=== PATIENT | male | born 1975 | race Caucasian/White ===

== ENCOUNTER 2016-12-29 13:02 | Inpatient (IN) | payer MEDICAID ==
[~2016-12-29] VITALS: Ht 175.3 cm; Wt 97.3 kg
[~2016-12-29 13:02] MED LIST: NOCURR
[2016-12-29 14:59] VITALS: BP 125/76
[2016-12-29] MEDS ORDERED: ACETAMINOPHEN 325 MG TABLET PO PRN (15:15)
[2016-12-29] MEDS ORDERED: PROMETHAZINE HCL 25 MG TABLET PO PRN (15:15)
[2016-12-29] MEDS ORDERED: MAG HYDROX/AL HYDROX/SIMETH ES 30 ML SUSPENSION UDCUP PO PRN (15:15)
[2016-12-29] MEDS ORDERED: LORazepam 2 MG TABLET PO PRN (15:15)
[2016-12-29] MEDS ORDERED: LOPERAMIDE HCL 2 MG CAPSULE PO PRN (15:15)
[2016-12-29] MEDS ORDERED: HydrOXYzine PAMOATE 50 MG CAPSULE PO PRN (15:15)
[2016-12-29] MEDS ORDERED: MAGNESIUM HYDROXIDE SUSPENSION 30 ML UDCUP PO PRN (15:15)
[2016-12-29] MEDS ORDERED: TUBERCULIN, PURIFIED PROTEIN DERIVATIVE 5 TU/0.1 ML SYG ID ONE (15:15)
[2016-12-29] MEDS ORDERED: OLANZapine 5 MG RAPDIS TABLET PO PRN (15:15)
[2016-12-29] MEDS ORDERED: GuaiFENesin/D-METHORPHAN [SUGAR-FREE] 200-20MG/10 ML SYRUP UDCUP PO PRN (15:15)
[2016-12-29] MEDS ORDERED: ZOLPIDEM TARTRATE 10 MG TABLET PO PRN (15:15)
[2016-12-29 16:15] VITALS: BP 141/91
[2016-12-29] MEDS: THIAMINE HCL 100 MG TABLET PO SCH (16:50)
[2016-12-29] MEDS ORDERED: OLANZapine 5 MG RAPDIS TABLET PO SCH (21:00)
[2016-12-30 06:29] VITALS: BP 131/85
[2016-12-30 08:34] VITALS: BP 100/62
[2016-12-30] MEDS: NALTREXONE HCL 50 MG TABLET PO SCH (09:19)
[2016-12-30] MEDS: FLUoxetine HCL 20 MG CAPSULE PO SCH (09:19)
[2016-12-30] MEDS: MULTIVITAMINS WITH MINERALS, THERAPEUTIC TABLET PO SCH (09:19)
[2016-12-30] MEDS: THIAMINE HCL 100 MG TABLET PO SCH ×2 (09:20→16:47)
[2016-12-30] MEDS: FOLIC ACID 1 MG TABLET PO SCH (09:20)
[2016-12-30] MEDS: CEPHALEXIN MONOHYDRATE 500 MG CAPSULE PO SCH ×3 (13:10→20:35)
[2016-12-30 16:00] VITALS: BP 118/67
[2016-12-30] MEDS: OLANZapine 10 MG RAPDIS TABLET PO SCH (20:35)
[2016-12-31 06:38] VITALS: BP 108/79
[2016-12-31 08:25] VITALS: BP 122/67
[2016-12-31] MEDS: MULTIVITAMINS WITH MINERALS, THERAPEUTIC TABLET PO SCH (08:43)
[2016-12-31] MEDS: THIAMINE HCL 100 MG TABLET PO SCH ×2 (08:43→16:50)
[2016-12-31] MEDS: FOLIC ACID 1 MG TABLET PO SCH (08:43)
[2016-12-31] MEDS: FLUoxetine HCL 20 MG CAPSULE PO SCH (08:43)
[2016-12-31] MEDS: CEPHALEXIN MONOHYDRATE 500 MG CAPSULE PO SCH ×4 (08:43→20:33)
[2016-12-31] MEDS: NALTREXONE HCL 50 MG TABLET PO SCH (08:43)
[2016-12-31 16:04] VITALS: BP 116/66
[2016-12-31] MEDS: DIVALPROEX SODIUM 500 MG ER TABLET PO SCH (20:33)
[2016-12-31] MEDS: OLANZapine 10 MG RAPDIS TABLET PO SCH (20:33)
[2017-01-01 06:41] VITALS: BP 129/76
[2017-01-01 08:00] VITALS: BP 110/65
[2017-01-01] MEDS: CEPHALEXIN MONOHYDRATE 500 MG CAPSULE PO SCH ×4 (08:30→20:38)
[2017-01-01] MEDS: FOLIC ACID 1 MG TABLET PO SCH (08:30)
[2017-01-01] MEDS: NALTREXONE HCL 50 MG TABLET PO SCH (08:30)
[2017-01-01] MEDS: MULTIVITAMINS WITH MINERALS, THERAPEUTIC TABLET PO SCH (08:30)
[2017-01-01] MEDS: FLUoxetine HCL 20 MG CAPSULE PO SCH (08:30)
[2017-01-01] MEDS: THIAMINE HCL 100 MG TABLET PO SCH ×2 (08:30→17:01)
[2017-01-01 08:45] LABS: BASOPHILS % (AUTO) 0.3 % (0.0-2.0); HEMATOCRIT 48.6 % (41-53); HEMOGLOBIN 16.7 g/dL (13.5-17.5); MEAN CORPUSCULAR HEMOGLOBIN 32.6 pg (26.0-34.0); MEAN CORPUSCULAR HGB CONC 34.3 G/dL (31.0-37.0); MEAN CORPUSCULAR VOLUME 95 fL (80-100); MONOCYTES # (AUTO) 0.5 K/uL (0.1-1.0); MONOCYTES % (AUTO) 5.8 % (2.0-9.0); NEUTROPHILS # (AUTO) 5.4 K/uL (1.8-7.7); NEUTROPHILS % (AUTO) 67.9 % (40.0-70.0); PLATELET COUNT (AUTO) 265 K/uL (150-450); RED BLOOD CELL COUNT(AUTO) 5.12 MIL/uL (4.50-5.90); RED CELL DISTRIBUTION WIDTH 14.1 % (11.5-14.5)
[2017-01-01 09:33] LABS: HEMOGLOBIN A1C 5.1 % (4.5-6.2)
[2017-01-01 10:03] LABS: ALANINE AMINOTRANSFERASE 140 U/L (12-78); ALBUMIN 3.4 g/dL (3.4-5.0); ANION GAP 13 mmol/L (8-16); ASPARTATE AMINOTRANSFERASE 85 U/L (15-37); BILIRUBIN,TOTAL 0.5 mg/dL (0.1-1.0); CALCIUM, TOTAL 9.2 mg/dL (8.8-10.5); CARBON DIOXIDE 23 mmol/L (22-29); CHLORIDE 104 mmol/L (98-107); CHOL/HDL RATIO 2.4 (4.2-7.3); CREATININE 0.82 mg/dL (0.60-1.30); GLOMERULAR FILTR. RATE CALC > 60 mL/min (>60); POTASSIUM 4.1 mmol/L (3.5-5.1); SODIUM SERUM 140 mmol/L (136-145); THYROID STIMULATING HORMONE 0.44 uIU/mL (0.36-3.74); UREA NITROGEN, BLOOD 12 mg/dL (7-18); VALPROIC ACID 47 mcg/mL (50-100)
[2017-01-01 10:40] LABS: URIC ACID 4.6 mg/dL (2.6-7.2)
[2017-01-01] MEDS ORDERED: NALT50 PO (14:55)
[2017-01-01] MEDS ORDERED: DIVA500T52 PO (14:55)
[2017-01-01] MEDS ORDERED: FLUO-191 PO (14:55)
[2017-01-01] MEDS ORDERED: OLAN10TA22 PO (14:55)
[2017-01-01 16:00] VITALS: BP 121/70
[2017-01-01] MEDS: DIVALPROEX SODIUM 500 MG ER TABLET PO SCH (20:38)
[2017-01-01] MEDS: OLANZapine 10 MG RAPDIS TABLET PO SCH (20:38)
[2017-01-02 06:10] VITALS: BP 117/72
[2017-01-02 08:02] VITALS: BP 123/76
[2017-01-02 08:29] LABS: HEPATITIS Bs ANTIGEN SCREEN P Negative (Negative); HEPATITIS C AB SCREEN >11.0 s/co ratio (0.0-0.9)
[2017-01-02] MEDS: CEPHALEXIN MONOHYDRATE 500 MG CAPSULE PO SCH (08:43)
[2017-01-02] MEDS: NALTREXONE HCL 50 MG TABLET PO SCH (08:43)
[2017-01-02] MEDS: THIAMINE HCL 100 MG TABLET PO SCH (08:43)
[2017-01-02] MEDS: MULTIVITAMINS WITH MINERALS, THERAPEUTIC TABLET PO SCH (08:43)
[2017-01-02] MEDS: FLUoxetine HCL 20 MG CAPSULE PO SCH (08:43)
[2017-01-02] MEDS: FOLIC ACID 1 MG TABLET PO SCH (08:43)
[2017-01-02 09:38] LABS: APPEARANCE,URINE TURBID (CLEAR); GLUCOSE, URINE (UA) NEGATIVE (NEGATIVE); KETONES,URINE TRACE mg/dL (NEGATIVE); LEUKOCYTE ESTERASE ,URINE NEGATIVE (NEGATIVE); OCCULT BLOOD,URINE NEGATIVE (NEGATIVE); PROTEIN,URINE NEGATIVE (NEGATIVE)
[2017-01-02 09:43] LABS: ADD UA MICROSCOPIC YES
[2017-01-02 09:59] LABS: AMORPHOUS SEDIMENT,UR Moderate /LPF (None Seen); RBC,URINE 0-2 /HPF (0-2); SQUAMOUS EPITHELIAL CELL,UR Few /LPF (None Seen); WBC,URINE 0-2 /HPF (0-5)
[2017-01-02] MEDS ORDERED: DIVA500T52 PO (10:03)
[2017-01-02] MEDS ORDERED: NALT50 PO (10:03)
[2017-01-02] MEDS ORDERED: FLUO-191 PO (10:03)
[2017-01-02] MEDS ORDERED: OLAN10TA6 PO (10:03)
[2017-01-02] MEDS ORDERED: CEPH500 PO (10:03)
== END 2017-01-02 10:15 | disposition home or self-care (01) | DRG 750 ==
LOC: B3A 15:36
PROVIDERS: ADMIT Psychiatry & Neurology Psychiatry; ATTEND Psychiatry & Neurology Psychiatry
DX: F25.0 Schizoaffective disorder, bipolar type (principal); R45.851 Suicidal ideations; L03.115 Cellulitis of right lower limb; F32.9 Major depressive disorder, single episode, unspecified; F17.200 Nicotine dependence, unspecified, uncomplicated; F11.90 Opioid use, unspecified, uncomplicated; Z91.19 Patient's noncompliance with other medical treatment and regimen; M79.89 Other specified soft tissue disorders; R03.0 Elevated blood-pressure reading, without diagnosis of hypertension; Z65.3 Problems related to other legal circumstances; Z59.9 Problem related to housing and economic circumstances, unspecified
CPT/HCPCS: 80074; 80307; 83036; 84439; 84443; 84550; 86592

== ENCOUNTER 2018-06-02 11:03 | Emergency (ER) | payer MEDICAID ==
[~2018-06-02] VITALS: Ht 180.3 cm; Wt 90.9 kg
[~2018-06-02 11:03] MED LIST changes: +CEPH500 PO; +DIVA500T52 PO; +FLUO-191 PO; +NALT50TA6 PO; +OLAN10TA22 PO; +OLAN10TA6 PO
[2018-06-02 11:13] VITALS: BP 132/62
== END 2018-06-02 11:59 | disposition left against medical advice (07) ==
LOC: EMS 11:03
DX: T40.1X1A Poisoning by heroin, accidental (unintentional), initial encounter (principal); F25.9 Schizoaffective disorder, unspecified; Z79.899 Other long term (current) drug therapy; Y92.89 Other specified places as the place of occurrence of the external cause